=== PATIENT | female | born 1960 | race Hispanic/Latino ===

== ENCOUNTER 2025-09-09 13:19 | Outpatient (CLI) | payer OTHER, MEDICAID ==
[2025-09-09 13:50] LABS: Estimated GFR - POC 82.0
[2025-09-09] MEDS ORDERED: Iopamidol 370 76% 100 ML VIAL ONE (14:17)
== END 2025-09-09 13:20 | disposition home or self-care (01) ==
LOC: CT 13:19
PROVIDERS: ATTEND Nurse Practitioner Family
DX: R25.1 Tremor, unspecified (principal)
CPT/HCPCS: 36415; 70470; 82565; Q9967